=== PATIENT | female | born 1970 | race Caucasian/White ===

== ENCOUNTER → 2019-10-17 | Outpatient (CLI) | payer OTHER ==
[~2019-10-17] MED LIST: COQ1050 MG; FOLBIC RF TABL1 EACH PO; PREDNISONE 20 M20 M1 PO; PROBIOTIC1 EAC1 PO; PROGESTERONE100 MG PO; VENTOLIN HFA 1818 GM INH; VITAMIN D1000 UNI1 PO
== END ==
LOC: M.LAB 07:34
DX: Z11.59 Encounter for screening for other viral diseases (principal); Z20.828 Contact with and (suspected) exposure to other viral communicable diseases

== ENCOUNTER → 2019-11-11 | Outpatient (CLI) | payer OTHER | LOC: M.RAD 13:07 | DX: Z12.31 Encounter for screening mammogram for malignant neoplasm of breast (principal) ==

== ENCOUNTER → 2019-11-16 | Outpatient (CLI) | payer OTHER | LOC: M.ULTRA 09:51 | DX: N63.23 Unspecified lump in the left breast, lower outer quadrant (principal) ==

== ENCOUNTER → 2019-11-18 | Outpatient (CLI) | payer OTHER ==
--- NOTE | 2019-11-20 15:12 | PATH ---
[address] [address] PATHOLOGY RPT PROCEDURE Name: JAYNE GARCIA Room: [facility] Mahajan#: [id number] Admission: 11/18/19 Date of : 74 Discharge: Report #: [id number] Path Case #: [id number] [facility] Accession Number: [id number] . 01 Material submitted: . breast - LEFT BREAST BIOPSY, 4:00, 3CMFN. Modifiers: left, 4:00 . 01 Clinical history: . Left breast mass 4:00 3c FN 0.64 x 0.65 x 0.32 . 02 Diagnosis: Left breast mass, 4:00, 3 cm from nipple, image-guided core biopsies: - BREAST TISSUE WITH ATYPICAL DUCTAL HYPERPLASIA, NEGATIVE FOR MALIGNANCY. SEE COMMENT. (JOHNNA:heidy; 11/19/2019) MBLuis 11/19/2019 1618 Local . 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 Reviewed with Dr. Soco Souza who agrees with the diagnosis. Radha Pierce ([facility] [place] breast navigator) notified at approximately 1255 on 11/20/2019. (JOHNNA:wastewater engineer; 11/19/2019) . 02 Electronically signed: . John Fay MD, Pathologist NPI- [id number] . 01 Gross description: . The specimen is received in formalin, labeled "Jayne Garcia, left breast BX 4:00 3cfn" and consists of 2 needle cores of yellow orange breast tissue measuring 2.0 cm and 3.1 cm in length and 0.3-0.4 cm in diameter which are entirely submitted in A1-A2. The specimen was collected at 9:37 AM on 11/18/2019 and placed in formalin at 9:41 AM. The cold ischemic time is 4 minutes and the total formalin fixation time is greater than 6 hours but less than 72 hours. (SDY; 11/18/2019) SYU/SYU 11/18/2019 1615 Local . 02 Pathologist provided ICD-10: N62 . 02 CPT . 379719 Specimen Comment: A courtesy copy of this report has been sent to [phone] Specimen Comment: [phone], [place] [address] PATHOLOGY RPT PROCEDURE Name: JAYNE GARCIA [id number] Admission: 11/18/19 Date of : 74 Discharge: Report #: [id number] Path Case #: [id number] Specimen Comment: Report sent to ,DR PIERCE / DR CRESPO Performed at: 01 [facility] [place] [address] [place] [address] [address], [place], [place] [id number] MD Jonathan Sandra MD Phone: [phone] Performed at: [address] [facility] [address] [place] [id number] MD John Fay MD Phone: [phone]
== END | disposition home or self-care (01) ==
LOC: M.ULTRA 08:18
DX: N62 Hypertrophy of breast (principal); R92.1 Mammographic calcification found on diagnostic imaging of breast; Z98.890 Other specified postprocedural states; Z79.899 Other long term (current) drug therapy